=== PATIENT | male | born 1950 | race Caucasian/White ===

== ENCOUNTER 2019-09-26 10:28 | Day surgery (SDC) | payer MEDICARE ==
[~2019-09-26] VITALS: Ht 175.3 cm; Wt 102.0 kg
[2019-09-26 10:56] LABS: INR 2.8 (0.8-3.0); PROTHROMBIN TIME 34.3 SECONDS (9.7-12.8)
[2019-09-26 10:57] LABS: POTASSIUM 4.9 mmol/L (3.4-5.0)
[2019-09-26] MEDS ORDERED: PRINIVIL20 MG PO (11:06)
[2019-09-26] MEDS ORDERED: LOPRESSOR 550 MG/TAB PO (11:07)
[2019-09-26] MEDS ORDERED: COUMADIN 5MG5 MG/TAB PO ×2 (11:08)
[2019-09-26] MEDS ORDERED: LASIX 20MG TABL20 MG PO (11:09)
[2019-09-26] MEDS ORDERED: PRESERVISION1 SGL PO (11:10)
[2019-09-26] MEDS ORDERED: LIQUIFILM TEARS15 ML OU (11:11)
[2019-09-26 11:17] VITALS: BP 151/103; PULSE 106; TEMP 97.7
[2019-09-26 11:31] LABS: THYROID STIMULATING HORMONE 2.66 uIU/mL (0.465-4.680)
[2019-09-26] MEDS ORDERED: CORDARONE200 MG/TAB PO ×2 (13:46→13:47)
[2019-09-26] MEDS ORDERED: PACERONE200 MG PO (13:47)
[2019-09-26 13:50] VITALS: BP 128/103; PULSE 107
--- NOTE | 2019-09-26 13:50 | NUR ---
Report received from Elaine Gabriel RN. IONA/CV complete but unsuccessful converting pt. Pt resting well in bed.
[2019-09-26 14:05] VITALS: BP 144/95; PULSE 89
[2019-09-26 14:20] VITALS: BP 136/92; PULSE 90
[2019-09-26 14:35] VITALS: BP 142/100; PULSE 95
--- NOTE | 2019-09-26 14:35 | NUR ---
Pt has ambulated, voided and yogi PO intake s n/v. PIV removed with catheter intact.
--- NOTE | 2019-09-26 14:45 | NUR ---
Pt discharged per w/c by nurse with transportation.
== END 2019-09-26 15:03 | disposition home or self-care (01) ==
LOC: COL.CAR 10:28
PROVIDERS: Internal Medicine Interventional Cardiology
DX: I48.19 Other persistent atrial fibrillation (principal); I34.0 Nonrheumatic mitral (valve) insufficiency; I10 Essential (primary) hypertension; M19.90 Unspecified osteoarthritis, unspecified site; Z95.0 Presence of cardiac pacemaker; Z87.891 Personal history of nicotine dependence; Z88.5 Allergy status to narcotic agent
CPT/HCPCS: J2704; J7030